=== PATIENT | female | born 1965 | race Caucasian/White ===

== ENCOUNTER 2021-05-26 16:33 | Emergency (ER) | payer OTHER ==
[~2021-05-26] VITALS: Ht 162.6 cm; Wt 120.5 kg
[2021-05-26 17:03] VITALS: TEMP 98.9
[2021-05-26] MEDS ORDERED: FLEXERIL 1010 MG/TAB PO (18:12)
[2021-05-26 18:20] VITALS: BP 126/78; PULSE 76
== END 2021-05-26 18:20 | disposition home or self-care (01) ==
LOC: COL.ER 16:33
DX: M25.512 Pain in left shoulder (principal); R51.9 Headache, unspecified; M79.642 Pain in left hand; I10 Essential (primary) hypertension; V49.9XXA Car occupant (driver) (passenger) injured in unspecified traffic accident, initial encounter